=== PATIENT | female | born 1975 | race Caucasian/White ===

== ENCOUNTER 2016-09-15 15:32 | Emergency (ER) | payer MEDICAID ==
[2016-09-15] MEDS ORDERED: SODIUM CHLORIDE 0.9% 1,000 ML ONE (20:32)
[2016-09-15] MEDS ORDERED: KETOROLAC 30 MG/ML VIAL ONE (20:32)
[2016-09-15] MEDS ORDERED: ONDANSETRON 4 MG VIAL ONE (21:01)
== END 2016-09-15 22:09 | disposition home or self-care (01) ==
LOC: ER 15:32
DX: R10.33 Periumbilical pain (principal); R10.31 Right lower quadrant pain; B96.81 Helicobacter pylori [H. pylori] as the cause of diseases classified elsewhere; K25.3 Acute gastric ulcer without hemorrhage or perforation
CPT/HCPCS: 36415; 74176; 80053; 81001; 83690; 84703; 85025; 86677; 96361; 96374; 96375